=== PATIENT | male | born 1995 | race Caucasian/White ===

== ENCOUNTER 2017-03-27 19:06 | Emergency (ER) | payer OTHER ==
[~2017-03-27] VITALS: Ht 180.3 cm; Wt 80.0 kg
[2017-03-27 19:15] VITALS: BP 131/75
== END 2017-03-27 21:17 | disposition home or self-care (01) ==
LOC: ED 21:00
DX: M20.012 Mallet finger of left finger(s) (principal)
CPT/HCPCS: 29130; 99284